=== PATIENT | female | born 1955 ===

== ENCOUNTER 2023-01-15 06:57 | Emergency (ER) | payer MEDICARE, OTHER ==
[2023-01-15] MEDS ORDERED: Sodium Chloride 0.9% 10 ML Syringe FLUSH PRN (07:25)
[2023-01-15 07:37] LABS: BASOPHILS PERCENT AUTO 0.2 % (0.0-1.0); EOSINOPHILS PERCENT AUTO 1.5 % (1.0-3.0); HEMATOCRIT 41.7 % (37.0-47.0); HEMOGLOBIN 14.1 g/dL (12.0-16.0); LYMPHOCYTES PERCENT AUTO 12.7 % (20.5-50.1); MEAN CORPUSCULAR HEMOGLOBIN 32.7 pg (27.0-34.0); MEAN CORPUSCULAR HGB CONC 33.8 g/dL (33.0-35.0); MEAN CORPUSCULAR VOLUME 96.8 fL (80-100); MONOCYTES PERCENT AUTO 6.3 % (2-8); NEUTROPHILS PERCENT AUTO 79.3 % (42.2-75.2); PLATELET COUNT,PLT 245 10^3/uL (150-450); RED BLOOD CELL COUNT 4.31 10^6/uL (4.2-5.4); WHITE BLOOD CELL COUNT,WBC 8.7 10^3/uL (5.0-10.0)
[2023-01-15 07:56] LABS: ALBUMIN 3.2 g/dL (3.4-5.0); ANION GAP 12.1 mEq/L (7-13); BILIRUBIN TOTAL 0.3 mg/dL (0.2-1.0); BUN/CREATININE RATIO 10.4 (No establ ref range); CREATININE 0.77 mg/dL (0.55-1.02); EST CRCL DRUG DOSING (CG) 62.06 mL/min; POTASSIUM,K 4.1 mmol/L (3.5-5.1); PROTEIN TOTAL,TP 7.4 g/dL (6.4-8.2)
[2023-01-15 08:00] LABS: A/G RATIO 0.76; C-REACTIVE PROTEIN 17.4 mg/dL (0.0-0.9)
== END 2023-01-15 09:15 | disposition home or self-care (01) ==
LOC: DL.ED 06:57
DX: L03.811 Cellulitis of head [any part, except face] (principal); Z88.1 Allergy status to other antibiotic agents; Z88.8 Allergy status to other drugs, medicaments and biological substances
CPT/HCPCS: 36415; 80053; 85025; 86140; 87040; 96365; 96366; 99283; 99284; J3370; J7050; J3490